=== PATIENT | female | born 1975 | race Caucasian/White ===

== ENCOUNTER 2017-10-30 10:12 | Day surgery (SDC) | payer OTHER ==
[~2017-10-30 10:12] MED LIST: COZAAR50 MG PO; SYMBICORT 80/10.2 GM IH
[2017-10-30] MEDS ORDERED: CODE1TAB37 PO (13:27)
== END 2017-10-30 16:40 | disposition home or self-care (01) ==
LOC: CIR.AMB 10:12
DX: D27.0 Benign neoplasm of right ovary (principal); N73.6 Female pelvic peritoneal adhesions (postinfective)

== ENCOUNTER 2019-03-31 20:17 | Emergency (ER) | payer OTHER ==
[~2019-03-31] VITALS: Ht 160 cm; Wt 59.0 kg
[~2019-03-31 20:17] MED LIST changes: +CODE1TAB37 PO
== END 2019-04-01 00:17 | disposition home or self-care (01) ==
LOC: ER 20:17
DX: T22.212A Burn of second degree of left forearm, initial encounter (principal); X13.1XXA Other contact with steam and other hot vapors, initial encounter; Y93.G3 Activity, cooking and baking; Y92.010 Kitchen of single-family (private) house as the place of occurrence of the external cause; Y99.8 Other external cause status